=== PATIENT | male | born 1965 | race Caucasian/White ===

== ENCOUNTER 2017-01-06 13:43 | Emergency (ER) | payer OTHER ==
[~2017-01-06] VITALS: Ht 182.9 cm; Wt 111.0 kg
[~2017-01-06 13:43] MED LIST: ASPEC81 PO
[2017-01-06 13:47] VITALS: TEMP 36.3; Ht 182.9 cm; Wt 111.0 kg
[2017-01-06 15:15] VITALS: O2SAT 98
--- NOTE | 2017-01-06 15:40 | DIAGNOSTIC IMAGING REPORT ---
CHEST ONE VIEW PORTABLE CLINICAL HISTORY: 51 years-old Male presenting with Chest Pain. TECHNIQUE: Portable upright AP view of the chest was obtained. COMPARISON: 05/17/2016. FINDINGS: Decreased prominence of the cardiac silhouette. Minimal bandlike opacities at the lung bases, likely atelectasis or scarring. No pleural effusion or pneumothorax. Degenerative changes of the spine. Upper abdomen normal. IMPRESSION: 1. Minimal bibasilar atelectasis or scarring. No other evidence of acute cardiopulmonary disease. Electronically signed by: Андрей Courtney M.D. 01/06/2017 3:39 PM Dictated Date/Time: 01/06/2017 3:38 PM
[2017-01-06] MEDS ORDERED: SODIUM CHLORIDE 0.9% 500ML 500 ML IV STA (15:41)
[2017-01-06 15:48] LABS: BASO % 0.3 %; BASO ABS # 0.03 K/uL (0-0.2); COMPLETE YES; EOS % 0.3 %; HEMATOCRIT 38.5 % (42-52); IG% 0.3 %; LYMPH % 26.9 %; LYMPH ABS # 2.39 K/uL (1.2-3.4); MEAN CELL VOLUME 87.1 fL (80-100); MEAN CORPUSCULAR HEMOGLOBIN 31.4 pg (25-34); MEAN CORPUSCULAR HGB CONC 36.1 g/dl (32-36); MEAN PLATELET VOLUME 9.2 fL (7.4-10.4); MONO % 6.9 %; NEUT % 65.3 %; PLATELET COUNT 226 K/uL (130-400); RED BLOOD COUNT 4.42 M/uL (4.7-6.1); WHITE BLOOD COUNT 8.89 K/uL (4.8-10.8)
[2017-01-06 16:09] LABS: BLOOD UREA NITROGEN 20 mg/dl (7-18); CALCIUM 8.9 mg/dl (8.5-10.1); CARBON DIOXIDE 29 mmol/L (21-32); CHLORIDE 107 mmol/L (98-107); CREATININE 0.97 mg/dl (0.60-1.40); GLUCOSE 114 mg/dl (70-99); POTASSIUM 3.3 mmol/L (3.5-5.1); SODIUM 142 mmol/L (136-145)
[2017-01-06 16:14] LABS: CKMB/CK RATIO 0.8 (0-3.0)
[2017-01-06 16:49] VITALS: BP 141/89; PULSE 61; O2SAT 98
--- NOTE | 2017-01-06 21:55 | EMERGENCY ROOM VISIT NOTE ---
History Report prepared by Scribe: Beryl Saul Under the Supervision of: Melissa OrtegaO. First contact with patient: 15:05 Chief Complaint: HYPERTENSION Stated Complaint: HIGH BLOOD PRESSURE History of Present Illness The patient is a 51 year old male who presents to the Emergency Room with complaints of worsening hypertension for the past day. He reports last night he checked his BP at home and it was elevated. He tried resting, but when he took it again, it was still elevated around 160/100. This morning, he started to feel "tightness" in his chest and some shortness of breath. He checked his BP again and it was higher than yesterday, around 180/100, so he came to the ED. He admits to taking a course of steroids, that he had been taking for Tendonitis. Since starting this medication he notes he has been amped up. The patient denies a history of chronic hypertension. He admits to a non-productive cough for the past several days but he is not a current smoker. Pt denies headache, change in vision, fevers, chest pain, nausea, vomiting, diarrhea, pain with urination, melena, pain or swelling in his arms or legs. He also denies any recent hemoptysis, recent trips or surgeries. He has no history of asthma, COPD, NH or blood clots. Source of History: patient Onset: 1 day [employer] Position: other (global) Quality: other (hypertension) Timing: worsening Associated Symptoms: + SOB, No fevers, No headache, No chest pain, No nausea , No vomiting, No melena, No diarrhea, No urinary symptoms Review of Systems See HPI for pertinent positives & negatives. A total of 10 systems reviewed and were otherwise negative. Past Medical & Surgical Medical Problems: (1) TIA (transient ischemic attack) Surgical Problems: (1) H/O shoulder surgery Family History FH: heart disease Social History Smoking Status: Never Smoker Alcohol Use: occasionally Drug Use: none Marital Status: Housing Status: lives with family Occupation Status: employed Current/Historical Medications No Active Prescriptions or Reported Meds Allergies Coded Allergies: No Known Allergies (Verified , 05/17/15) Physical Exam Vital Signs Date Time Temp Pulse Resp B/P (MAP) Pulse Ox O2 Delivery O2 Flow Rate FiO2 01/06/17 16:49 61 18 141/89 98 Room Air 01/06/17 16:00 60 18 144/99 96 Room Air 01/06/17 15:53 62 18 155/105 98 Room Air 01/06/17 15:20 68 01/06/17 15:15 98 Room Air 01/06/17 15:15 70 18 161/99 100 Room Air 01/06/17 13:47 36.3 76 18 166/112 97 Room Air Physical Exam GENERAL: Patient is sitting up in bed, disheveled, alert, well appearing, well nourished, no distress, non-toxic EYE EXAM: normal conjunctiva OROPHARYNX: no exudate, no erythema, lips, buccal mucosa, and tongue normal and mucous membranes are moist NECK: supple, no nuchal rigidity, no adenopathy, non-tender LUNGS: Clear to auscultation. Normal chest wall mechanics HEART: no murmurs, S1 normal and S2 normal CHEST: reproducible left anterior chest wall tenderness. ABDOMEN: abdomen soft, non-tender, normo-active bowel sounds, no masses, no rebound or guarding. BACK: Back is symmetrical on inspection and there is no deformity, no midline tenderness, no CVA tenderness. SKIN: no rashes and no bruising UPPER EXTREMITIES: upper extremities are grossly normal. LOWER EXTREMITIES: No pitting edema. Calves are equal bilaterally. NEURO EXAM: Normal sensorium, cranial nerves II-XII intact, normal speech, no weakness of arms, no weakness of legs. Gross sensation intact. Medical Decision & Procedures ER Provider Diagnostic Interpretation: Radiology results as stated below per my review and the radiologist's interpretation: CHEST ONE VIEW PORTABLE CLINICAL HISTORY: 51 years-old Male presenting with Chest Pain. TECHNIQUE: Portable upright AP view of the chest was obtained. COMPARISON: 05/17/2016. FINDINGS: Decreased prominence of the cardiac silhouette. Minimal bandlike opacities at the lung bases, likely atelectasis or scarring. No pleural effusion or pneumothorax. Degenerative changes of the spine. Upper abdomen normal. IMPRESSION: 1. Minimal bibasilar atelectasis or scarring. No other evidence of acute cardiopulmonary disease. Electronically signed by: Андрей Courtney M.D. 01/06/2017 3:39 PM Laboratory Results 01/06/17 15:26 Red Blood Count 4.42, Mean Corpuscular Volume 87.1, Mean Corpuscular Hemoglobin 31.4, Mean Corpuscular Hemoglobin Concent 36.1, Mean Platelet Volume 9.2, Neutrophils (%) (Auto) 65.3, Lymphocytes (%) (Auto) 26.9, Monocytes (%) (Auto) 6.9, Eosinophils (%) (Auto) 0.3, Basophils (%) (Auto) 0.3, Neutrophils # (Auto) 5.80, Lymphocytes # (Auto) 2.39, Monocytes # (Auto) 0.61, Eosinophils # (Auto) 0.03, Basophils # (Auto) 0.03 01/06/17 15:26 Test 01/06/17 15:26 White Blood Count 8.89 K/uL (4.8-10.8) Red Blood Count 4.42 M/uL (4.7-6.1) Hemoglobin 13.9 g/dL (14.0-18.0) Hematocrit 38.5 % (42-52) Mean Corpuscular Volume 87.1 fL (80-100) Mean Corpuscular Hemoglobin 31.4 pg (25-34) Mean Corpuscular Hemoglobin Concent 36.1 g/dl (32-36) Platelet Count 226 K/uL (130-400) Mean Platelet Volume 9.2 fL (7.4-10.4) Neutrophils (%) (Auto) 65.3 % Lymphocytes (%) (Auto) 26.9 % Monocytes (%) (Auto) 6.9 % Eosinophils (%) (Auto) 0.3 % Basophils (%) (Auto) 0.3 % Neutrophils # (Auto) 5.80 K/uL (1.4-6.5) Lymphocytes # (Auto) 2.39 K/uL (1.2-3.4) Monocytes # (Auto) 0.61 K/uL (0.11-0.59) Eosinophils # (Auto) 0.03 K/uL (0-0.5) Basophils # (Auto) 0.03 K/uL (0-0.2) RDW Standard Deviation 41.0 fL (36.4-46.3) RDW Coefficient of Variation 12.7 % (11.5-14.5) Immature Granulocyte % (Auto) 0.3 % Immature Granulocyte # (Auto) 0.03 K/uL (0.00-0.02) D-Dimer 230 ug/L FEU (0-500) Anion Gap 6.0 mmol/L (3-11) Est Creatinine Clear Calc Drug Dose 117.2 ml/min Estimated GFR () 105.1 Estimated GFR (Non- 90.7 BUN/Creatinine Ratio 21.0 (10-20) Calcium Level 8.9 mg/dl (8.5-10.1) Total Creatine Kinase 146 U/L (39-308) Creatine Kinase MB 1.1 ng/ml (0.5-3.6) Creatine Kinase MB Ratio 0.8 (0-3.0) Troponin I < 0.015 ng/ml (0-0.045) Laboratory results per my review. Medications Administered Medications (Trade) Dose Ordered Sig/Satcy Route Start Time Stop Time Status Last Admin Dose Admin Sodium Chloride 500 ml @ 999 mls/hr Q31M STAT IV 01/06/17 15:41 01/06/17 16:11 DC 01/06/17 15:52 999 MLS/HR ECG Indication: SOB/dyspnea Rate (beats per minute): 64 Rhythm: sinus rhythm Findings: other (T-wave flattening in inferior leads) ED Course ED COURSE: Vital signs were reviewed and showed the patient is hypertensive. The patients medical record was reviewed The above diagnostic studies were performed and reviewed. ED treatments and interventions as stated above. 1510: The patient was evaluated in room A9. A complete history and physical examination was performed. 1541: NSS 500 ml @ 999 mls/hr IV. 1702: Upon reevaluation, the patient is feeling well and believes he is at his baseline. I discussed my findings with the patient and he understands and agrees with the treatment plan. Based on the patients age, coexisting illnesses, exam and lab findings the decision to treat as an outpatient was made. The patient remained stable while under my care. The patient appeared well at the time of discharge. Medical Decision Differential diagnoses includes but is not limited to pneumonia, bronchitis, COPD/Asthma exacerbation, pneumothorax, pulmonary embolism, congestive heart failure, acute coronary syndrome. Patient is a 51-year-old male who presents the ER for hypertension which has been present for the past 3 days. He has been taking steroids for tendinitis and he notes he has been amped up the past several days. Patient currently has no complaints. He did have some mild chest tightness this morning. CBC and BMP was unremarkable. Troponin was negative with pain greater than 8 hours. Shortness of breath have been present for the past 2 days but has resolved today. Chest x-ray was unremarkable. D-dimer was negative and a low risk patient. Patient and was at bedside. Blood pressure came down to 150. I favor HIS symptoms are likely secondary to steroids. He was updated at bedside. He is discharged follow-up with PCP. Discussed with Pt concerning signs and symptoms to watch out for. Pt was instructed to follow up with their PCP and discussed with the patient their option to return to the ED at anytime for persistent or worsening symptoms. The appropriate anticipatory guidance and out-patient management, including indications for return to the emergency department, were explained at length to the patient and understood. Medication Reconcilliation Current Medication List: was personally reviewed by me Blood Pressure Screening Patient's blood pressure: Elevated blood pressure Blood pressure disposition: Referred to PCP Impression Primary Impression: Hypertension Additional Impressions: Hypokalemia Dyspnea Scribe Attestation The scribe's documentation has been prepared under my direction and personally reviewed by me in its entirety. I confirm that the note above accurately reflects all work, treatment, procedures, and medical decision making performed by me. Departure Information Dispostion Home / Self-Care Prescriptions No Active Prescriptions or Reported Meds Referrals Shanna Damico (PCP) Patient Instructions Hypertension Al, My [facility] Additional Instructions Please follow up with your primary care doctor with in the next 24 hours. Any worsening of your symptoms, please return to the ED immediately. This includes any fevers greater than 100.4, worsening pain, chest pain, shortness breath, persistent nausea, vomiting, passing out, or any other concerning signs or symptoms from your standpoint. You were found to have an elevated blood pressure. Please have this followed up on by her primary care doctor. Please stop taking the steroids. Problem Qualifiers Primary Impression: Hypertension Hypertension type: unspecified Qualified Codes: I10 - Essential (primary) hypertension Additional Impressions: Dyspnea Dyspnea type: unspecified Qualified Codes: R06.00 - Dyspnea, unspecified
== END 2017-01-06 17:19 | disposition home or self-care (01) ==
LOC: C.EDB 13:44 → C.EDA 17:19
DX: I10 Essential (primary) hypertension (principal); E87.6 Hypokalemia; R06.00 Dyspnea, unspecified; Z86.73 Personal history of transient ischemic attack (TIA), and cerebral infarction without residual deficits; M77.9 Enthesopathy, unspecified